=== PATIENT | female | born 1975 ===

== ENCOUNTER 2024-09-15 10:20 | Day surgery (SDC) | payer OTHER, SELFPAY ==
[2024-09-15] VITALS (14 sets, daily range): BP systolic 94–111; BP diastolic 50–65; BMI 47.1
--- NOTE | 2024-09-15 12:18 | ITS.CL.PN ---
[employer] Worker - Procedure Note
Procedure
Procedure Note:
CARDIAC CATHETERIZATION REPORT
Date of Procedure: 09/15/2024
Referring: Dr. Edwin Campo MD
Indication: dyspnea on exertion, positive cardiac stress test
PROCEDURE(S)
1. right heart catheterization
2. left heart catheterization
3. coronary angiography
ACCESS
1. 6F right radial artery (closure: radial band)
2. 5F right antecubital vein (closure: manual hemostasis)
CATHETERS
1. 5F [place]
2. 6F JR4
3. 5F JL3.5 (downsized due to radial spasm)
MODERATE SEDATION: 25 minutes of moderate sedation was utilized. An independent medical device was present to assist with and help manage the patient's level of consciousness and physiologic status.
HEMODYNAMIC DATA
LV 123/17 (EDP 23) mmHg
AO 126/76 (mean 100) mmHg
RA 15 mmHg
RV 35/7 (EDP 18) mmHg
PA 38/18 (mean 28) mmHg
PCWP 23 mmHg
SaO2 89.3%
SvO2 69.1 point %
Hb 11.8 g/dL
CO/CI 9.95/3.86 L/min/m2
SVR 683 dsc*-5
PVR 0.5 Wood units
CORONARY ANGIOGRAPHY
Dominance: right
LM: Large, normal
LAD: Large vessel giving rise to a large branching diagonal. There are trivial luminal irregularities only.
LCx: Large vessel giving rise to a moderate caliber OM1, large OM2, small O3, and small LPL branch. There are trivial luminal irregularities only.
RCA: large vessel giving rise to a large early rising marginal branch, moderate caliber RPDA, and several small RPL branches. There are trivial luminal irregularities only.
RADIATION: dose 350 mGy; DAP 27.7 Gy*cm2; fluoroscopy time 4.7 min
CONCLUSIONS
1. Elevated biventricular filling pressures, mild postcapillary pulmonary hypertension, and normal cardiac output.
2. No aortic stenosis on hemodynamic pullback
3. Nonobstructive coronary artery disease as described with only trivial luminal irregularities
RECOMMENDATIONS
1. Primary prevention of coronary artery disease
2. Treatment of diastolic heart failure
Copy to: Dr. Edwin Campo MD (suction worker); Dr. Dana Trujillo DO (PCP)
Signed: Madhu Siddiqi MD, PhD
--- NOTE | 2024-09-15 12:49 | PTCARENOTE ---
AAOx3 pleasant. No complaint. Lunch relief. bedside report taken from MS.
.
== END 2024-09-15 15:50 | disposition home or self-care (01) ==
LOC: CATH 10:20
PROVIDERS: ATTENDING PHYSICIAN Student in an Organized Health Care Education/Training Program; FAMILY PHYSICIAN Family Medicine; REFERRING PHYSICIAN Internal Medicine Cardiovascular Disease
DX: I25.10 Atherosclerotic heart disease of native coronary artery without angina pectoris (principal); R94.39 Abnormal result of other cardiovascular function study; R06.09 Other forms of dyspnea; I49.3 Ventricular premature depolarization; I51.7 Cardiomegaly; I10 Essential (primary) hypertension; K21.9 Gastro-esophageal reflux disease without esophagitis; E66.01 Morbid (severe) obesity due to excess calories; Z68.42 Body mass index [BMI] 45.0-49.9, adult; R60.0 Localized edema; Z87.891 Personal history of nicotine dependence; Z82.49 Family history of ischemic heart disease and other diseases of the circulatory system
CPT/HCPCS: 99152; 99153; C1894; C1769; 93460; Q9967